=== PATIENT | female | born 1965 | race African-American/Black ===

== ENCOUNTER 2024-12-31 14:07 | Inpatient (IN) | payer OTHER ==
[2024-12-31] MEDS ORDERED: VANCOMYCIN HCL 1,500 MG in DEXTROSE 5%-WATER - 500 ML IVPB ONE (15:41)
[2024-12-31 15:45] LABS: ABSOLUTE IMMATURE GRANULOCYTES 0.03 x10^3/uL (0.0-0.031); BASOPHILS # 0.04 x10^3/uL (0.01-0.08); EOSINOPHIL % 1.1 % (0.7-5.8); EOSINOPHILS # 0.07 x10^3/uL (0.04-0.36); MCHC 32.4 g/dl (32.2-35.5); MEAN CELL VOLUME 92.2 fl (79.4-94.8); MEAN PLT VOLUME 10.6 fl (9.4-12.3); MONOCYTE # 0.60 x10^3/uL (0.24-0.86); MONOCYTE % 9.4 % (4.7-12.5); RDW 13.3 % (12.4-16.4)
[2024-12-31] MEDS: morphine CARPU-JECT 4 MG/1 ML DISP.SYRIN IVPUSH ONE (15:51)
[2024-12-31] MEDS ORDERED: ACETAMINOPHEN INJECTION 100 ML ONE (15:53)
[2024-12-31] MEDS: ACETAMINOPHEN 1000 MG/100 ML BAG IVPB ONE (16:02)
[2024-12-31 16:06] LABS: CO2 23.0 mmol/L (21-32); GLUCOSE,RANDOM 114.0 mg/dL (74-106)
[2024-12-31] MEDS ORDERED: PIPERACILLIN/TAZOB 4.5 GM 4.5 GM/100 ML BAG IVPB ONE (16:07)
[2024-12-31 16:09] LABS: CREATININE 1.0 mg/dL (0.55-1.3); SGOT/AST 45.0 U/L (15-37); SGPT/ALT 56.0 U/L (13-61)
[2024-12-31 16:11] LABS: TOT PROT 8.0 g/dl (6.4-8.2)
[2024-12-31 16:12] LABS: ALK PHOS 90.0 U/L (45-117)
[2024-12-31] MEDS: PIPERACILLIN/TAZOB 4.5 GM 4.5 GM in DEXTROSE 5%-WATER 100 ML IVPB ONE (16:23)
[2024-12-31] MEDS ORDERED: VANCOMYCIN HCL IN 5 % DEXTROSE 1,500 MG/300 ML BAG IVPB ONE (16:30)
[2024-12-31] MEDS: VANCOMYCIN PREMIX 1.5 GM 1,500 MG/300 ML BAG IVPB ONE (19:00)
[2024-12-31] MEDS ORDERED: ACETAMINOPHEN 325 MG TABLET (FP) ONE (19:20)
[2024-12-31] MEDS: ACETAMINOPHEN 500 MG TABLET (FP) PO PRN (19:23)
[2024-12-31 20:12] LABS: HCV DIAGNOSTIC IN-HOUSE W/RFLX NON-REACTIVE (NONREACTIVE)
[2024-12-31 20:18] LABS: HIV INTERPRETATION NEGATIVE (NEGATIVE)
[2024-12-31] MEDS: KETOROLAC TROMETHAMINE 15 MG/ML VIAL IVPUSH PRN (21:08)
[2024-12-31] MEDS: GABAPENTIN 300 MG CAPSULE PO SCH (21:08)
[2024-12-31] MEDS: MIRTAZAPINE 15 MG TABLET (FP) PO SCH (21:08)
[2024-12-31] MEDS: HEPARIN NA (PORCINE) 5,000 UNITS/ML 1ML VIAL SQ SCH (21:08)
[2024-12-31] MEDS: ATORVASTATIN CA 10 MG TABLET (FP) PO SCH (21:08)
[2024-12-31 22:06] VITALS: BMI 36.2
[2025-01-01] MEDS: PIPERACILLIN/TAZOB 4.5 GM 4.5 GM in DEXTROSE 5%-WATER 100 ML IVPB SCH ×2 (01:08→17:21)
[2025-01-01] MEDS: INSULIN ASPART SLIDING SCALE (NOVOLOG) 1 VIAL SQ SCH (06:14)
[2025-01-01 09:04] LABS: ABSOLUTE IMMATURE GRANULOCYTES 0.02 x10^3/uL (0.0-0.031); BASOPHILS # 0.03 x10^3/uL (0.01-0.08); EOSINOPHIL % 2.7 % (0.7-5.8); EOSINOPHILS # 0.13 x10^3/uL (0.04-0.36); MCHC 31.3 g/dl (32.2-35.5); MEAN CELL VOLUME 93.2 fl (79.4-94.8); MEAN PLT VOLUME 10.7 fl (9.4-12.3); MONOCYTE # 0.59 x10^3/uL (0.24-0.86); MONOCYTE % 12.3 % (4.7-12.5); RDW 13.4 % (12.4-16.4)
[2025-01-01 09:55] LABS: CO2 26.0 mmol/L (21-32); GLUCOSE,RANDOM 100.0 mg/dL (74-106)
[2025-01-01 09:58] LABS: CREATININE 1.0 mg/dL (0.55-1.3)
[2025-01-01] MEDS: amLODIPine BESYLATE 10 MG TABLET (FP) PO SCH (10:10)
[2025-01-01 11:35] LABS: ERYTHROCYTE SEDIMENTATION RATE 34 mm/hr (0-30)
[2025-01-01] MEDS ORDERED: ACETAMINOPHEN 500 MG TABLET (FP) PO PRN (12:26)
[2025-01-01] MEDS: POTASSIUM CHLORIDE TABS 20 MEQ TABLET.ER (FP) PO ONE (13:12)
[2025-01-01] MEDS: KETOROLAC TROMETHAMINE 15 MG/ML VIAL IVPUSH PRN (20:12)
[2025-01-02 10:25] LABS: MCHC 31.4 g/dl (32.2-35.5); MEAN CELL VOLUME 94.2 fl (79.4-94.8); MEAN PLT VOLUME 10.7 fl (9.4-12.3); RDW 13.3 % (12.4-16.4)
[2025-01-02 11:15] LABS: CO2 26.0 mmol/L (21-32); CREATININE 1.0 mg/dL (0.55-1.3); GLUCOSE,RANDOM 109.0 mg/dL (74-106); SGPT/ALT 41.0 U/L (13-61)
[2025-01-02 11:16] LABS: TOT PROT 7.2 g/dl (6.4-8.2)
[2025-01-02 11:17] LABS: ALK PHOS 76.0 U/L (45-117)
[2025-01-02 11:19] LABS: SGOT/AST 30.0 U/L (15-37)
[2025-01-03 08:48] LABS: ABSOLUTE IMMATURE GRANULOCYTES 0.01 x10^3/uL (0.0-0.031); BASOPHILS # 0.04 x10^3/uL (0.01-0.08); EOSINOPHIL % 2.6 % (0.7-5.8); EOSINOPHILS # 0.11 x10^3/uL (0.04-0.36); MCHC 31.4 g/dl (32.2-35.5); MEAN CELL VOLUME 94.0 fl (79.4-94.8); MEAN PLT VOLUME 10.8 fl (9.4-12.3); MONOCYTE # 0.39 x10^3/uL (0.24-0.86); MONOCYTE % 9.3 % (4.7-12.5); RDW 13.3 % (12.4-16.4)
[2025-01-03 09:47] LABS: ERYTHROCYTE SEDIMENTATION RATE 38 mm/hr (0-30)
[2025-01-03 09:58] LABS: CO2 25.0 mmol/L (21-32); GLUCOSE,RANDOM 80.0 mg/dL (74-106)
[2025-01-03 10:01] LABS: CREATININE 0.9 mg/dL (0.55-1.3); SGOT/AST 31.0 U/L (15-37); SGPT/ALT 41.0 U/L (13-61)
[2025-01-03 10:02] LABS: TOT PROT 7.4 g/dl (6.4-8.2)
[2025-01-03 10:04] LABS: ALK PHOS 76.0 U/L (45-117)
[2025-01-03] MEDS: ASPIRIN 81 MG CHEWABLE TABLETS PO SCH (11:08)
[2025-01-03] MEDS: morphine CARPU-JECT 2 MG/1 ML DISP.SYRIN IVPUSH PRN (11:34)
[2025-01-04 08:40] LABS: ABSOLUTE IMMATURE GRANULOCYTES 0.02 x10^3/uL (0.0-0.031); BASOPHILS # 0.04 x10^3/uL (0.01-0.08); EOSINOPHIL % 3.2 % (0.7-5.8); EOSINOPHILS # 0.14 x10^3/uL (0.04-0.36); MCHC 31.0 g/dl (32.2-35.5); MEAN CELL VOLUME 94.4 fl (79.4-94.8); MEAN PLT VOLUME 10.4 fl (9.4-12.3); MONOCYTE # 0.48 x10^3/uL (0.24-0.86); MONOCYTE % 11.0 % (4.7-12.5); RDW 13.5 % (12.4-16.4)
[2025-01-04 09:26] LABS: CO2 28.0 mmol/L (21-32); GLUCOSE,RANDOM 96.0 mg/dL (74-106)
[2025-01-04 09:29] LABS: CREATININE 0.8 mg/dL (0.55-1.3)
[2025-01-04] MEDS: DEXTROSE 50%-WATER 25 GM/50 ML DISP.SYRIN IVPUSH ONE (13:27)
[2025-01-04] MEDS: DEXTROSE 50%-WATER - 25 GM/50 ML VIAL IVPUSH ONE ×2 (13:29→19:54)
[2025-01-04] MEDS ORDERED: LIDOCAINE HCL 1%, 10 MG/ML (20ML VIAL) ONE (13:48)
[2025-01-04] MEDS ORDERED: MIDAZOLAM HCL 2 MG/2 ML SINGLE DOSE VIAL ONE (15:11)
[2025-01-04] MEDS: LIDOCAINE HCL 1%, 10 MG/ML (20ML VIAL) NR ONE ×2 (15:24)
[2025-01-04] MEDS ORDERED: ONDANSETRON 4 MG/2 ML VIAL IVPUSH PRN (15:42)
[2025-01-04] MEDS: INSULIN ASPART SLIDING SCALE (NOVOLOG) 1 VIAL SQ SCH (16:59)
[2025-01-04] MEDS: KETOROLAC TROMETHAMINE 15 MG/ML VIAL IVPUSH PRN (17:37)
[2025-01-04] MEDS: PIPERACILLIN/TAZOB 4.5 GM 4.5 GM in DEXTROSE 5%-WATER 100 ML IVPB SCH (17:37)
[2025-01-04] MEDS: GABAPENTIN 300 MG CAPSULE PO SCH (21:19)
[2025-01-04] MEDS: ATORVASTATIN CA 10 MG TABLET (FP) PO SCH (21:19)
[2025-01-04] MEDS: MIRTAZAPINE 15 MG TABLET (FP) PO SCH (21:19)
[2025-01-04] MEDS: HEPARIN NA (PORCINE) 5,000 UNITS/ML 1ML VIAL SQ SCH (21:20)
[2025-01-04] MEDS: morphine CARPU-JECT 2 MG/1 ML DISP.SYRIN IVPUSH PRN (21:20)
[2025-01-05] MEDS: ACETAMINOPHEN 500 MG TABLET (FP) PO PRN (06:46)
[2025-01-05] MEDS: POLYETHYLENE GLYCOL (HEALTHYLAX) 3350 17 GM PACKET PO SCH (06:53)
[2025-01-05] MEDS: ASPIRIN 81 MG CHEWABLE TABLETS PO SCH (10:31)
[2025-01-05] MEDS: amLODIPine BESYLATE 10 MG TABLET (FP) PO SCH (10:31)
[2025-01-05 10:52] LABS: ABSOLUTE IMMATURE GRANULOCYTES 0.01 x10^3/uL (0.0-0.031); BASOPHILS # 0.03 x10^3/uL (0.01-0.08); MCHC 30.2 g/dl (32.2-35.5)
[2025-01-05 10:54] LABS: EOSINOPHIL % 2.3 % (0.7-5.8); EOSINOPHILS # 0.12 x10^3/uL (0.04-0.36); MEAN CELL VOLUME 96.3 fl (79.4-94.8); MONOCYTE # 0.26 x10^3/uL (0.24-0.86); MONOCYTE % 5.0 % (4.7-12.5); RDW 13.8 % (12.4-16.4)
[2025-01-05 11:50] LABS: CO2 27.0 mmol/L (21-32); GLUCOSE,RANDOM 130.0 mg/dL (74-106)
[2025-01-05 11:53] LABS: CREATININE 0.8 mg/dL (0.55-1.3)
[2025-01-05] MEDS ORDERED: KETOROLAC TROMETHAMINE 15 MG/ML VIAL IVPUSH PRN (17:20)
[2025-01-05] MEDS: IBUPROFEN 600 MG TABLET (FP) PO PRN (17:43)
[2025-01-06] MEDS: KETOROLAC TROMETHAMINE 15 MG/ML VIAL IVPUSH ONE (01:14)
[2025-01-06 09:54] VITALS: RESP 18
[2025-01-06 10:33] LABS: ABSOLUTE IMMATURE GRANULOCYTES 0.02 x10^3/uL (0.0-0.031); BASOPHILS # 0.03 x10^3/uL (0.01-0.08); EOSINOPHIL % 2.5 % (0.7-5.8); EOSINOPHILS # 0.09 x10^3/uL (0.04-0.36); MCHC 31.0 g/dl (32.2-35.5); MEAN CELL VOLUME 94.5 fl (79.4-94.8); MEAN PLT VOLUME 10.7 fl (9.4-12.3); MONOCYTE # 0.29 x10^3/uL (0.24-0.86); MONOCYTE % 8.1 % (4.7-12.5); RDW 13.4 % (12.4-16.4)
[2025-01-06 11:22] LABS: GLUCOSE,RANDOM 165.0 mg/dL (74-106)
[2025-01-06 11:23] LABS: CO2 28.0 mmol/L (21-32)
[2025-01-06 11:24] LABS: CREATININE 0.9 mg/dL (0.55-1.3)
[2025-01-06] MEDS: NYSTATIN POWDER 100,000 UNITS/GM - 15 GM TOPICAL POWDER TP SCH (13:58)
[2025-01-06 14:37] VITALS: BP 127/84; PULSE 88; TEMP 98.1
== END 2025-01-06 20:26 | DRG 603 ==
LOC: JER 14:07 → JERBED 16:54 → OBSVTOIN 17:42 → J6S 20:41
PROVIDERS: ADMIT Internal Medicine; ATTEND Internal Medicine
PROC: 0HDNXZZ Extraction of Left Foot Skin, External Approach (ICD-10-PCS; 2025-01-04)
PROC: 0JBR3ZX Excision of Left Foot Subcutaneous Tissue and Fascia, Percutaneous Approach, Diagnostic (ICD-10-PCS; principal; 2025-01-04 15:00)
DX: L03.116 Cellulitis of left lower limb (principal); F13.20 Sedative, hypnotic or anxiolytic dependence, uncomplicated; D64.9 Anemia, unspecified; E11.621 Type 2 diabetes mellitus with foot ulcer; E11.51 Type 2 diabetes mellitus with diabetic peripheral angiopathy without gangrene; E11.40 Type 2 diabetes mellitus with diabetic neuropathy, unspecified; I10 Essential (primary) hypertension; L97.529 Non-pressure chronic ulcer of other part of left foot with unspecified severity; E78.5 Hyperlipidemia, unspecified
CPT/HCPCS: 36415; 71045-TC-FY; 73630-TC-LT; 73700-TC-RT; 80048; 80053; 82962; 83735; 84100; 85025; 85027; 85651; 86140; 86803; 87040; 87070; 87205; 87389; 88305-TC; 93005; 93010; 94760; 97116-GP; 97162-GP; 99285-25; A6260; G0378; G0463-25

== ENCOUNTER 2025-03-30 15:30 | Inpatient (IN) | payer OTHER ==
[2025-03-30 17:50] LABS: ABSOLUTE IMMATURE GRANULOCYTES 0.01 x10^3/uL (0.0-0.031); BASOPHILS # 0.02 x10^3/uL (0.01-0.08); EOSINOPHIL % 1.0 % (0.7-5.8); EOSINOPHILS # 0.05 x10^3/uL (0.04-0.36); MCHC 31.6 g/dl (32.2-35.5); MEAN CELL VOLUME 94.5 fl (79.4-94.8); MEAN PLT VOLUME 10.4 fl (9.4-12.3); MONOCYTE # 0.45 x10^3/uL (0.24-0.86); MONOCYTE % 9.4 % (4.7-12.5); RDW 13.5 % (12.4-16.4)
[2025-03-30] MEDS ORDERED: ACETAMINOPHEN INJECTION 100 ML ONE (17:53)
[2025-03-30] MEDS ORDERED: PIPERACILLIN/TAZOB 4.5 GM 4.5 GM/100 ML BAG IVPB ONE (17:53)
[2025-03-30] MEDS ORDERED: VANCOMYCIN 1 GM PREMIX (F) 1 GM/200 ML BAG ONE (17:54)
[2025-03-30] MEDS: VANCOMYCIN 1 GM PREMIX (F) 1 GM/200 ML BAG IVPB ONE (18:07)
[2025-03-30] MEDS: ACETAMINOPHEN 1000 MG/100 ML BAG IVPB ONE (18:07)
[2025-03-30] MEDS: PIPERACILLIN/TAZOB 4.5 GM 4.5 GM in DEXTROSE 5%-WATER 100 ML IVPB ONE (18:07)
[2025-03-30 18:09] LABS: INR 1.12 (0.83-1.09); PROTHROMBIN TIME (PATIENT) 12.3 SEC (9.7-13.0)
[2025-03-30 18:10] LABS: GLUCOSE,RANDOM 94.0 mg/dL (74-106)
[2025-03-30 18:11] LABS: TOT PROT 7.0 g/dl (6.4-8.2)
[2025-03-30 18:12] LABS: ACTIVATED PTT 28.6 SECONDS (25.2-36.5); CO2 25.0 mmol/L (21-32)
[2025-03-30 18:13] LABS: ALK PHOS 79.0 U/L (40-150)
[2025-03-30 18:16] LABS: CREATININE 0.71 mg/dL (0.55-1.3); SGOT/AST 28.0 U/L (5-34); SGPT/ALT 27.0 U/L (0-55)
[2025-03-30] MEDS: morphine CARPU-JECT 2 MG/1 ML DISP.SYRIN IVPUSH ONE (18:23)
[2025-03-30 18:29] LABS: HIV INTERPRETATION NEGATIVE (NEGATIVE)
[2025-03-30 18:30] LABS: HCV DIAGNOSTIC IN-HOUSE W/RFLX NON-REACTIVE (NONREACTIVE)
[2025-03-30 19:09] LABS: ERYTHROCYTE SEDIMENTATION RATE 21 mm/hr (0-30)
[2025-03-31 01:02] LABS: EPI CELLS >36 /uL (0-25.1); HYALINE CASTS 0 /uL (0-3.1); URINE APPEARANCE CLEAR; URINE BACTERIA 532 /uL (0-1359); URINE BILIRUBIN NEGATIVE (NEGATIVE); URINE COLOR YELLOW; URINE GLUCOSE (UA) NEGATIVE (NEGATIVE); URINE KETONE NEGATIVE (NEGATIVE); URINE LEUK ESTERASE 1+ (NEGATIVE); URINE NITRITE NEGATIVE (NEGATIVE); URINE PROTEIN NEGATIVE (NEGATIVE); URINE RBC 5 /uL (0-23.9); URINE UROBILINOGEN 0.2 mg/dL (0.2-1.0); URINE WBC 59 /uL (0-25.8)
[2025-03-31] MEDS: INSULIN ASPART SLIDING SCALE (NOVOLOG) 1 VIAL SQ SCH (01:05)
[2025-03-31] MEDS: SODIUM CHLORIDE 1,000 ML IV SCH (02:14)
[2025-03-31 02:43] VITALS: BMI 34.2
[2025-03-31] MEDS: PIPERACILLIN/TAZOB 3.375 GM 3.375 GM in DEXTROSE 5%-WATER - 50 ML IVPB SCH (03:27)
[2025-03-31] MEDS: GABAPENTIN 300 MG CAPSULE PO SCH (05:43)
[2025-03-31] MEDS: VANCOMYCIN PREMIX 1.5 GM 1,500 MG/300 ML BAG IVPB SCH (06:11)
[2025-03-31 07:50] LABS: ABSOLUTE IMMATURE GRANULOCYTES 0.00 x10^3/uL (0.0-0.031); BASOPHILS # 0.02 x10^3/uL (0.01-0.08); EOSINOPHIL % 1.5 % (0.7-5.8); EOSINOPHILS # 0.06 x10^3/uL (0.04-0.36); MCHC 30.6 g/dl (32.2-35.5); MEAN CELL VOLUME 95.2 fl (79.4-94.8); MEAN PLT VOLUME 10.5 fl (9.4-12.3); MONOCYTE # 0.39 x10^3/uL (0.24-0.86); MONOCYTE % 9.7 % (4.7-12.5); RDW 13.6 % (12.4-16.4)
[2025-03-31 08:20] LABS: GLUCOSE,RANDOM 103.0 mg/dL (74-106); TOT PROT 6.6 g/dl (6.4-8.2)
[2025-03-31 08:22] LABS: CO2 27.0 mmol/L (21-32)
[2025-03-31 08:23] LABS: ALK PHOS 76.0 U/L (40-150)
[2025-03-31 08:26] LABS: CREATININE 0.84 mg/dL (0.55-1.3); SGOT/AST 22.0 U/L (5-34); SGPT/ALT 25.0 U/L (0-55)
[2025-03-31] MEDS: amLODIPine BESYLATE 10 MG TABLET (FP) PO SCH (10:23)
[2025-03-31] MEDS: ASPIRIN 81 MG CHEWABLE TABLETS PO SCH (10:24)
[2025-03-31] MEDS: ENOXAPARIN NA (PORCINE) 40 MG/0.4 ML DISP.SYRIN SQ SCH (10:25)
[2025-03-31] MEDS: GENTAMICIN SO4 0.1% TOP CREAM 15 GM/TUBE TP SCH (13:04)
[2025-03-31] MEDS: MAGNESIUM OXIDE 400 MG TABLET (FP) PO SCH (13:07)
[2025-03-31] MEDS: PIPERACILLIN/TAZOB 4.5 GM 4.5 GM in DEXTROSE 5%-WATER 100 ML IVPB SCH (18:24)
[2025-03-31] MEDS: ATORVASTATIN CA 10 MG TABLET (FP) PO SCH (21:57)
[2025-03-31] MEDS: ACETAMINOPHEN 500 MG TABLET (FP) PO PRN (22:42)
[2025-04-01 08:15] LABS: ABSOLUTE IMMATURE GRANULOCYTES 0.01 x10^3/uL (0.0-0.031); BASOPHILS # 0.02 x10^3/uL (0.01-0.08); EOSINOPHIL % 2.3 % (0.7-5.8); EOSINOPHILS # 0.08 x10^3/uL (0.04-0.36); MCHC 31.2 g/dl (32.2-35.5); MEAN CELL VOLUME 95.2 fl (79.4-94.8); MEAN PLT VOLUME 10.5 fl (9.4-12.3); MONOCYTE # 0.30 x10^3/uL (0.24-0.86); MONOCYTE % 8.5 % (4.7-12.5); RDW 13.4 % (12.4-16.4)
[2025-04-01 08:31] LABS: GLUCOSE,RANDOM 85.0 mg/dL (74-106); TOT PROT 7.1 g/dl (6.4-8.2)
[2025-04-01 08:32] LABS: CO2 27.0 mmol/L (21-32)
[2025-04-01 08:33] LABS: ALK PHOS 77.0 U/L (40-150)
[2025-04-01 08:36] LABS: CREATININE 0.85 mg/dL (0.55-1.3); SGOT/AST 20.0 U/L (5-34); SGPT/ALT 22.0 U/L (0-55)
[2025-04-01] MEDS: SODIUM HYPOCHLORITE 0.25%- 473 ML BULK BOTTLE TP SCH (10:45)
[2025-04-01] MEDS: DOCUSATE SODIUM 100 MG CAPSULE (FP) PO SCH (10:51)
[2025-04-01] MEDS: BISACODYL 5 MG TABLET.DR (FP) PO ONE (16:11)
[2025-04-02] MEDS ORDERED: PIPERACILLIN/TAZOB 3.375 GM 3.375 GM in DEXTROSE 5%-WATER - 50 ML IVPB SCH (03:00)
[2025-04-02] MEDS ORDERED: VANCOMYCIN PREMIX 1.5 GM 1,500 MG/300 ML BAG IVPB SCH (06:00)
[2025-04-02 07:36] LABS: ABSOLUTE IMMATURE GRANULOCYTES 0.00 x10^3/uL (0.0-0.031); BASOPHILS # 0.03 x10^3/uL (0.01-0.08); EOSINOPHIL % 2.0 % (0.7-5.8); EOSINOPHILS # 0.07 x10^3/uL (0.04-0.36); MCHC 31.2 g/dl (32.2-35.5); MEAN CELL VOLUME 93.7 fl (79.4-94.8); MEAN PLT VOLUME 10.4 fl (9.4-12.3); MONOCYTE # 0.38 x10^3/uL (0.24-0.86); MONOCYTE % 10.6 % (4.7-12.5); RDW 13.3 % (12.4-16.4)
[2025-04-02 08:04] LABS: GLUCOSE,RANDOM 99.0 mg/dL (74-106); TOT PROT 6.4 g/dl (6.4-8.2)
[2025-04-02 08:05] LABS: CO2 25.0 mmol/L (21-32)
[2025-04-02 08:07] LABS: ALK PHOS 70.0 U/L (40-150)
[2025-04-02 08:10] LABS: CREATININE 0.89 mg/dL (0.55-1.3); SGOT/AST 19.0 U/L (5-34); SGPT/ALT 20.0 U/L (0-55)
[2025-04-02] MEDS: ACETIC ACID 0.25% TP SCH (09:25)
[2025-04-02] MEDS: POTASSIUM CHLORIDE TABS 20 MEQ TABLET.ER (FP) PO SCH (12:00)
[2025-04-02] MEDS: POLYETHYLENE GLYCOL (HEALTHYLAX) 3350 17 GM PACKET PO SCH (13:40)
[2025-04-03] MEDS: ERGOCALCIFEROL (VIT D2) 50,000 UNIT (1.25 MG) CAPSULE PO SCH (09:25)
[2025-04-03 09:41] LABS: ABSOLUTE IMMATURE GRANULOCYTES 0.01 x10^3/uL (0.0-0.031); BASOPHILS # 0.03 x10^3/uL (0.01-0.08); EOSINOPHIL % 2.1 % (0.7-5.8); EOSINOPHILS # 0.08 x10^3/uL (0.04-0.36); MCHC 30.9 g/dl (32.2-35.5); MEAN CELL VOLUME 95.2 fl (79.4-94.8); MEAN PLT VOLUME 10.6 fl (9.4-12.3); MONOCYTE # 0.37 x10^3/uL (0.24-0.86); MONOCYTE % 9.5 % (4.7-12.5); RDW 13.4 % (12.4-16.4)
[2025-04-03 10:44] LABS: GLUCOSE,RANDOM 83.0 mg/dL (74-106); TOT PROT 7.2 g/dl (6.4-8.2)
[2025-04-03 10:45] LABS: CO2 22.0 mmol/L (21-32)
[2025-04-03 10:47] LABS: ALK PHOS 72.0 U/L (40-150)
[2025-04-03 10:50] LABS: CREATININE 0.76 mg/dL (0.55-1.3); SGOT/AST 31.0 U/L (5-34); SGPT/ALT 23.0 U/L (0-55)
[2025-04-03] MEDS: ARTIFICIAL TEARS OPHTHALMIC DROPS OU PRN (13:36)
[2025-04-03 16:21] VITALS: RESP 18
[2025-04-04 07:31] LABS: ABSOLUTE IMMATURE GRANULOCYTES 0.02 x10^3/uL (0.0-0.031); BASOPHILS # 0.03 x10^3/uL (0.01-0.08); EOSINOPHIL % 1.9 % (0.7-5.8); EOSINOPHILS # 0.08 x10^3/uL (0.04-0.36); MCHC 31.5 g/dl (32.2-35.5); MEAN CELL VOLUME 93.6 fl (79.4-94.8); MEAN PLT VOLUME 10.4 fl (9.4-12.3); MONOCYTE # 0.47 x10^3/uL (0.24-0.86); MONOCYTE % 11.4 % (4.7-12.5); RDW 13.4 % (12.4-16.4)
[2025-04-04 08:16] LABS: GLUCOSE,RANDOM 95.0 mg/dL (74-106); TOT PROT 6.9 g/dl (6.4-8.2)
[2025-04-04 08:17] LABS: CO2 24.0 mmol/L (21-32)
[2025-04-04 08:21] LABS: SGOT/AST 30.0 U/L (5-34); SGPT/ALT 28.0 U/L (0-55)
[2025-04-04 08:22] LABS: CREATININE 0.86 mg/dL (0.55-1.3)
[2025-04-04 09:42] LABS: ALK PHOS 69.0 U/L (40-150)
[2025-04-04 13:46] VITALS: BP 143/83; PULSE 95; TEMP 98.2
== END 2025-04-04 14:37 | disposition home or self-care (01) | DRG 638 ==
LOC: JER 15:30 → JERBED 20:33 → J7W 23:42
PROVIDERS: ADMIT Hospitalist; ATTEND Nurse Practitioner
DX: E11.621 Type 2 diabetes mellitus with foot ulcer (principal); F13.20 Sedative, hypnotic or anxiolytic dependence, uncomplicated; L97.529 Non-pressure chronic ulcer of other part of left foot with unspecified severity; E11.42 Type 2 diabetes mellitus with diabetic polyneuropathy; I10 Essential (primary) hypertension; E78.5 Hyperlipidemia, unspecified; E11.51 Type 2 diabetes mellitus with diabetic peripheral angiopathy without gangrene; E83.42 Hypomagnesemia; D63.8 Anemia in other chronic diseases classified elsewhere; E87.6 Hypokalemia
CPT/HCPCS: 36415; 73630-TC-LT; 73719-LT; 80053; 81003; 82962; 83735; 84100; 85025; 85610; 85651; 85730; 86140; 86803; 86850; 86900; 86901; 87040; 87070; 87086; 87205; 87389; 99285-25